=== PATIENT | female | born 1950 | race Caucasian/White ===

== ENCOUNTER 2024-11-25 10:01 | Emergency (ER) | payer MEDICARE | END 2024-11-25 10:57 | disposition home or self-care (01) | LOC: MADERS 10:01 | DX: J20.9 Acute bronchitis, unspecified (principal); E06.9 Thyroiditis, unspecified; I10 Essential (primary) hypertension; I48.91 Unspecified atrial fibrillation; Z79.01 Long term (current) use of anticoagulants; Z79.899 Other long term (current) drug therapy | CPT/HCPCS: 71046; 87400 ==